=== PATIENT | male | born 1970 | race Caucasian/White ===

== ENCOUNTER 2020-05-31 18:13 | Emergency (ER) | payer BC, OTHER ==
[2020-05-31] MEDS ORDERED: Sodium Chloride 0.9% 1000 ML 1,000 ML IV STA (18:35)
[2020-05-31] MEDS ORDERED: Zofran 4 MG/2 ML VIAL IV ONE (18:35)
--- NOTE | 2020-05-31 18:39 | ERPHSYRPT ---
- History of Present Illness Historian: patient Exam Limitations: no limitations Timing/Duration: week(s) (1), gradual onset, worse Activities at Onset: rest Quality: sharpness Abdominal Pain Onset Location: RUQ, epigastric Pain Radiation: periumbilical Severity of Pain-Max: moderate Severity of Pain-Current: moderate Modifying Factors: Worsens With: movement, palpation Associated Symptoms: nausea, vomiting, No chest pain, No diarrhea, No heartburn Previous symptoms: same symptoms as today <FRANKY BURGOS - Last Filed: 05/31/20 18:41> <MICHELLE GARCIA - Last Filed: 05/31/20 20:45> - History of Present Illness Time Seen by Provider: 05/31/20 18:29 Physician History: 49 years old male with history of hypertension, diabetes mellitus, pancreatitis status post cholecystectomy presented in the ER with 1 week history of epigastric pain with progressive worsening. Patient described this as a dull aching to sharp pain moderate intensity, radiating to both upper quadrants and periumbilical area, aggravated with movements and palpation and partial relief with taking pain medications. Denies any chest pain palpitations or shortness of breath. Patient also report having nausea and vomited x1 prior to arrival. Patient was evaluated at primary care office yesterday with lab work-up consistent with pancreatitis and is sent in here for further evaluation with CT abdomen . Denies any fever or chills. Reports having symptoms similar to last time when he had pancreatitis. (FRANKY BURGOS) Allergies/Adverse Reactions: shellfish derived Allergy (Severe, Verified 05/31/20 18:41) Home Medications: Amlodipine Besylate 5 mg [Norvasc 5 mg] 5 mg PO DAILY 05/31/20 [History] Insulin Degludec [Tresiba Flextouch U-200] 180 units SQ DAILY 05/31/20 [History] Oxycodone HCl/Acetaminophen [Oxycodone-Acetaminophen 5-325] 1 each PO Q6H 05/31/20 [History] Quinapril HCl [Accupril] 40 mg PO DAILY 05/31/20 [History] - Review of Systems Constitutional: No Symptoms Eyes: No Symptoms Ears, Nose, & Throat: No Symptoms Respiratory: No Symptoms Cardiac: No Symptoms Abdominal/Gastrointestinal: Abdominal Pain, Nausea, Vomiting Genitourinary Symptoms: No Symptoms Musculoskeletal: No Symptoms Skin: No Symptoms Neurological: No Symptoms Psychological: No Symptoms Endocrine: No Symptoms Hematologic/Lymphatic: No Symptoms Immunological/Allergic: No Symptoms <LORETTAFRANKY - Last Filed: 05/31/20 18:41> - Physical Exam General Appearance: no apparent distress, alert Eye Exam: PERRL/EOMI, eyes nml inspection Ears, Nose, Throat Exam: normal ENT inspection, pharynx normal Neck Exam: normal inspection, non-tender, supple, full range of motion Respiratory Exam: normal breath sounds, lungs clear Cardiovascular Exam: regular rate/rhythm, normal heart sounds Gastrointestinal/Abdomen Exam: soft, normal bowel sounds, tenderness (Epigastric/right upper quadrant) Back Exam: normal inspection, normal range of motion Extremity Exam: normal inspection, normal range of motion Neurologic Exam: alert, oriented x 3, cooperative Skin Exam: normal color SpO2 Interpretation: normal O2 Delivery: Room Air <LORETTA,FRANKY - Last Filed: 05/31/20 18:41> - Nursing Vital Signs Nursing Vital Signs: Initial Vital Signs Temperature 97.6 F 05/31/20 18:26 Pulse Rate 96 H 05/31/20 18:26 Blood Pressure 140/81 05/31/20 18:26 O2 Sat by Pulse Oximetry 97 05/31/20 18:26 Pain Scale Pain Intensity 5 - Course Nursing assessment & vital signs reviewed: Yes EKG Interpreted by Me: Sinus Rhythm, NORMAL AXIS, NORMAL INTERVALS, NORMAL QRS - CT Exams Abdomen/Pelvis CT Interpretation: Discussed w/radiologist, Other (acute pancreatitis) <MICHELLE GARCIA - Last Filed: 05/31/20 20:45> Ordered Tests: Active Orders 24 hr Category Date Time Status EKG-ER Only STAT Care 05/31/20 18:35 Active IV Insertion STAT Care 05/31/20 18:35 Active NPO (ED) STAT Care 05/31/20 18:35 Active ABDOMEN AND PELVIS W/0 CONTRAS [CT] Stat Exams 05/31/20 18:35 Taken AMYLASE Stat Lab 05/31/20 19:06 Completed CBC W DIFF Stat Lab 05/31/20 19:06 Completed CMP Stat Lab 05/31/20 19:06 Completed LIPASE Stat Lab 05/31/20 19:06 Completed TROPONIN Q3H Lab 05/31/20 19:06 Completed TROPONIN Q3H Lab 05/31/20 21:45 Ordered TROPONIN Q3H Lab 06/01/20 00:45 Ordered TROPONIN Q3H Lab 06/01/20 03:45 Ordered TROPONIN Q3H Lab 06/01/20 06:45 Ordered UA W/RFX UR CULTURE Stat Lab 05/31/20 18:55 Completed Medication Summary Discontinued Medications Generic Name Dose Route Start Last Admin Trade Name Juanq PRN Reason Stop Dose Admin Sodium Chloride 1,000 mls @ 999 mls/hr 05/31/20 18:35 05/31/20 20:34 Sodium Chloride 0.9% 1000 Ml IV 05/31/20 19:35 Infused .Q1H1M STA Infusion Sodium Chloride Confirm 05/31/20 19:11 Sodium Chloride 0.9% 1000 Ml Administered 05/31/20 19:12 Dose 1,000 mls @ ud .ROUTE .STK-MED ONE Ondansetron HCl 4 mg 05/31/20 18:35 05/31/20 19:13 Zofran 4 Mg/2 Ml Vial IV 05/31/20 18:36 4 mg STAT ONE Administration Ondansetron HCl Confirm 05/31/20 19:11 Zofran 4 Mg/2 Ml Vial Administered 05/31/20 19:12 Dose 4 mg .ROUTE .STK-MED ONE Lab/Rad Data: Laboratory Result Diagrams 05/31/20 19:06 05/31/20 19:06 Laboratory Results 05/31/20 05/31/20 05/31/20 Range/Units 19:06 19:06 19:06 WBC 8.8 (4.0-10.5) K/mm3 RBC 5.27 (4.1-5.6) M/mm3 Hgb 16.3 (12.5-18.0) gm/dl Hct 47.1 (42-50) % MCV 89.4 (78-100) fl MCH 30.9 (26-32) pg MCHC 34.6 (32-36) g/dl RDW 13.1 (11.5-14.0) % Plt Count 265 (150-450) K/mm3 MPV 10.1 (7.5-11.0) fl Gran % 64.8 (36.0-66.0) % Eos # (Auto) 0.13 (0-0.5) Absolute Lymphs (auto) 2.43 (1.0-4.6) Absolute Monos (auto) 0.51 (0.0-1.3) Lymphocytes % 27.6 (24.0-44.0) % Monocytes % 5.8 (0.0-12.0) % Eosinophils % 1.5 (0.00-5.0) % Basophils % 0.3 (0.0-0.4) % Absolute Granulocytes 5.72 (1.4-6.9) Basophils # 0.03 (0-0.4) Sodium 135 L (137-145) mmol/L Potassium 4.4 (3.5-5.1) mmol/L Chloride 100 (98-107) mmol/L Carbon Dioxide 24 (22-30) mmol/L Anion Gap 15.7 H (5-15) MEQ/L BUN 10 (9-20) mg/dL Creatinine 0.81 (0.66-1.25) mg/dL Estimated GFR > 60.0 ML/MIN Glucose 225 H (74-106) mg/dL Calcium 9.6 (8.4-10.2) mg/dL Total Bilirubin 0.50 (0.2-1.3) mg/dL AST 31 (17-59) U/L ALT 60 H (0-50) U/L Alkaline Phosphatase 62 (38-126) U/L Troponin I < 0.012 (0.000-0.034) ng/mL Serum Total Protein 7.2 (6.3-8.2) g/dL Albumin 4.1 (3.5-5.0) g/dL Amylase 51 (30-110) U/L Lipase 1229 H (23-300) U/L Urine Color (YELLOW) Urine Appearance (CLEAR) Urine pH (5-6) Ur Specific [place] (1.005-1.025) Urine Protein (Negative) Urine Ketones (NEGATIVE) Urine Blood (0-5) Seth/ul Urine Nitrite (NEGATIVE) Urine Bilirubin (NEGATIVE) Urine Urobilinogen (0-1) mg/dL Ur Leukocyte Esterase (NEGATIVE) Urine WBC (Auto) (0-5) /HPF Urine RBC (Auto) (0-2) /HPF U Epithel Cells (Auto) (FEW) /HPF Urine Bacteria (Auto) (NEGATIVE) /HPF Urine Mucus (Auto) (NEGATIVE) /HPF Urine Culture Reflexed (NO) Urine Glucose (NEGATIVE) mg/dL 05/31/20 Range/Units 18:55 WBC (4.0-10.5) K/mm3 RBC (4.1-5.6) M/mm3 Hgb (12.5-18.0) gm/dl Hct (42-50) % MCV (78-100) fl MCH (26-32) pg MCHC (32-36) g/dl RDW (11.5-14.0) % Plt Count (150-450) K/mm3 MPV (7.5-11.0) fl Gran % (36.0-66.0) % Eos # (Auto) (0-0.5) Absolute Lymphs (auto) (1.0-4.6) Absolute Monos (auto) (0.0-1.3) Lymphocytes % (24.0-44.0) % Monocytes % (0.0-12.0) % Eosinophils % (0.00-5.0) % Basophils % (0.0-0.4) % Absolute Granulocytes (1.4-6.9) Basophils # (0-0.4) Sodium (137-145) mmol/L Potassium (3.5-5.1) mmol/L Chloride (98-107) mmol/L Carbon Dioxide (22-30) mmol/L Anion Gap (5-15) MEQ/L BUN (9-20) mg/dL Creatinine (0.66-1.25) mg/dL Estimated GFR ML/MIN Glucose (74-106) mg/dL Calcium (8.4-10.2) mg/dL Total Bilirubin (0.2-1.3) mg/dL AST (17-59) U/L ALT (0-50) U/L Alkaline Phosphatase (38-126) U/L Troponin I (0.000-0.034) ng/mL Serum Total Protein (6.3-8.2) g/dL Albumin (3.5-5.0) g/dL Amylase (30-110) U/L Lipase (23-300) U/L Urine Color YELLOW (YELLOW) Urine Appearance SLIGHTLY CLOUDY (CLEAR) Urine pH 5.0 (5-6) Ur Specific [place] 1.025 (1.005-1.025) Urine Protein 30 (Negative) Urine Ketones NEGATIVE (NEGATIVE) Urine Blood NEGATIVE (0-5) Seth/ul Urine Nitrite NEGATIVE (NEGATIVE) Urine Bilirubin NEGATIVE (NEGATIVE) Urine Urobilinogen 2 (0-1) mg/dL Ur Leukocyte Esterase NEGATIVE (NEGATIVE) Urine WBC (Auto) 0-2 (0-5) /HPF Urine RBC (Auto) NONE (0-2) /HPF U Epithel Cells (Auto) RARE (FEW) /HPF Urine Bacteria (Auto) NONE SEEN (NEGATIVE) /HPF Urine Mucus (Auto) SLIGHT (NEGATIVE) /HPF Urine Culture Reflexed NO (NO) Urine Glucose 50 (NEGATIVE) mg/dL <FRANKY BURGOS - Last Filed: 05/31/20 18:41> - Progress Progress: improved Counseled pt/family regarding: lab results, diagnosis, need for follow-up, rad results <MICHELLE GARCIA - Last Filed: 05/31/20 20:45> - Progress Progress Note: 05/31/20 18:55 Acute abdomen work-up is ordered, pending, given fluid and Zofran. At this point care is transferred to Dr. Garcia at shift change. (FRANKY BURGOS) 05/31/20 20:42 Labs reveal elevated lipase 1229. CT scan shows mild acute pancreatitis without abscess formation or any other abnormality. There was an incidental hepatomegaly and splenomegaly. Patient states he feels fine to go home. He does have pain medicine at home he can keep himself hydrated without eating any solids for a couple of days and let us settle down. He states he has had this a few other times and only the first time that he had to stay in the hospital due to his gallbladder acting up as well. The other times he managed at home. Will discharge home with antiemetics as well. (MICHELLE GARCIA) <FRANKY BURGOS - Last Filed: 05/31/20 18:41> - Departure Departure Disposition: Home Critical Care Time: No <MICHELLE GARCIA - Last Filed: 05/31/20 20:45> - Departure Clinical Impression: Pancreatitis, acute Condition: Stable Referrals: ARASH IBARRA MD [Primary Care Provider] - Instructions: Pancreatitis (DC) Additional Instructions: Monitor symptoms closely. Drink fluids little better time and spaced apart. Use pain medication and nausea medication as needed. Advance your diet as tolerated. Follow-up with your PCP in 2 to 3 days for recheck. Return to ER should get worse. Prescriptions: Ondansetron ODT 4 MG [Zofran Odt 4 mg] 4 mg PO Q6H PRN PRN #10 tab.rapdis PRN Reason: Vomiting
[2020-05-31 19:09] LABS: Absolute Neutrophil Ct (ANC) 5.72 (1.4-6.9); BASOPHIL % 0.3 % (0.0-0.4); Basophil (Absolute #) 0.03 (0-0.4); Eosinophil % 1.5 % (0.00-5.0); Eosinophil (Absolute #) 0.13 (0-0.5); Hematocrit 47.1 % (42-50); Hemoglobin 16.3 gm/dl (12.5-18.0); Lymphocyte (Absolute #) 2.43 (1.0-4.6); Lymphocytes % 27.6 % (24.0-44.0); Mean Cell Volume 89.4 fl (78-100); Mean Corpuscular Hemoglobin 30.9 pg (26-32); Mean Corpuscular Hgb Concent. 34.6 g/dl (32-36); Mean Platelet Volume 10.1 fl (7.5-11.0); Monocyte (Absolute #) 0.51 (0.0-1.3); Monocytes % 5.8 % (0.0-12.0); Neutrophil % 64.8 % (36.0-66.0); Platelet Count 265 K/mm3 (150-450); Red Blood Count 5.27 M/mm3 (4.1-5.6); Red Cell Distribution Width 13.1 % (11.5-14.0); White Blood Count 8.8 K/mm3 (4.0-10.5)
[2020-05-31] MEDS ORDERED: Sodium Chloride 0.9% 1000 ML 1,000 ML ONE (19:11)
[2020-05-31] MEDS ORDERED: Zofran 4 MG/2 ML VIAL ONE (19:11)
[2020-05-31 19:12] LABS: Appearance SLIGHTLY CLOUDY (CLEAR); Bilirubin NEGATIVE (NEGATIVE); Blood NEGATIVE Ery/ul (0-5); Epithelial Cells RARE /HPF (FEW); Glucose 50 mg/dL (NEGATIVE); Ketones NEGATIVE (NEGATIVE); Leukocyte Esterase NEGATIVE (NEGATIVE); Mucus SLIGHT /HPF (NEGATIVE); Nitrite NEGATIVE (NEGATIVE); Protein,Urine Dip 30 (Negative); Specific Gravity 1.025 (1.005-1.025); Urobilinogen 2 mg/dL (0-1); WBC 0-2 /HPF (0-5)
[2020-05-31 19:13] LABS: Bacteria NONE SEEN /HPF (NEGATIVE)
[2020-05-31 19:29] LABS: ALBUMIN 4.1 g/dL (3.5-5.0); ALKALINE PHOSPHATASE 62 U/L (38-126); AMYLASE 51 U/L (30-110); ANION GAP 15.7 MEQ/L (5-15); BLOOD UREA NITROGEN 10 mg/dL (9-20); CHLORIDE 100 mmol/L (98-107); Calcium 9.6 mg/dL (8.4-10.2); Carbon Dioxide 24 mmol/L (22-30); Creatinine 1 0.81 mg/dL (0.66-1.25); EST GLOMERULAR FILTRATION RATE > 60.0 ML/MIN; Glucose 225 mg/dL (74-106); LIPASE 1229 U/L (23-300); Potassium 4.4 mmol/L (3.5-5.1); SGOT/AST 31 U/L (17-59); SGPT/ALT 60 U/L (0-50); SODIUM 135 mmol/L (137-145); Total Protein 7.2 g/dL (6.3-8.2)
[2020-05-31 21:23] VITALS: BP 137/80; PULSE 89; O2SAT 98
--- NOTE | 2020-05-31 22:02 | XRAY ---
Indication: Abdomen pain, nausea, and constipation. History of pancreatitis. Multiple contiguous axial images obtained through the abdomen and pelvis without contrast. Comparison: None Lung bases are clear. Heart is not enlarged. Noncontrasted stomach and bowel loops appear nonobstructed. Normal appendix. Entire pancreas appears prominent with mild peripancreatic stranding favoring acute pancreatitis. No free fluid/air. Incidental 30.5 cm fatty hepatomegaly, 17 cm splenomegaly, and cholecystectomy clips. Remaining adrenal glands, kidneys, ureters, bladder, and aorta appear unremarkable for noncontrast exam. Osseous structures intact with minimal degenerative changes throughout the spine. Small fatty bilateral inguinal hernias. Impression: 1. Diffuse pancreatitis without free fluid/air. 2. Incidental fatty hepatomegaly, splenomegaly, small fatty bilateral inguinal hernias, and multilevel degenerative spondylosis.
== END 2020-05-31 21:24 | disposition home or self-care (01) ==
LOC: ED 18:13
DX: K85.90 Acute pancreatitis without necrosis or infection, unspecified (principal)
CPT/HCPCS: 36000; 36415; 74176; 80053; 81001; 82150; 83690; 84484; 85025; 93005; 96360; 96374; 99284; J2405